=== PATIENT | male | born 1960 | race African-American/Black ===

== ENCOUNTER 2022-03-14 16:53 | Inpatient (IN) | payer OTHER ==
[2022-03-14 17:25] VITALS: BMI 32.1
[2022-03-14] MEDS ORDERED: guaiFENesin 200 MG/10 ML 10 ML UNIT-DOSE CUPS PO PRN (18:10)
[2022-03-14] MEDS ORDERED: MAGNESIUM HYDROX 2400MG/30ML ORAL SUSPENSION 30 ML CUP PO PRN (18:10)
[2022-03-14] MEDS ORDERED: IBUPROFEN 400 MG TABLET (FP) PO PRN (18:10)
[2022-03-14] MEDS ORDERED: LOPERAMIDE HCL 2 MG CAPSULE PO PRN (18:10)
[2022-03-14] MEDS ORDERED: MAG HYDROX/AL HYDROX/SIMETH 30 ML UNIT-DOSE CUP PO PRN (18:10)
[2022-03-14] MEDS ORDERED: POLYETHYLENE GLYCOL (HEALTHYLAX) 3350 17 GM PACKET PO PRN (18:10)
[2022-03-14] MEDS ORDERED: P-EPHED 60MG/TRIPROLIDI 2.5MG TABLET PO PRN (18:10)
[2022-03-14] MEDS ORDERED: BENZOCAINE/MENTHOL (CHLORASEPTIC ) LOZENGE MM PRN (18:10)
[2022-03-14] MEDS ORDERED: ACETAMINOPHEN 325 MG TABLET (FP) PO PRN (18:10)
[2022-03-14] MEDS ORDERED: TUBERCULIN PPD 5 TU/0.1ML VIAL ID ONE (19:24)
[2022-03-14] MEDS: THIAMINE HCL 100 MG TABLET (FP) PO SCH (21:22)
[2022-03-14] MEDS: MELATONIN 5 MG TABLETS PO PRN (21:22)
[2022-03-15] MEDS: FUROSEMIDE 20 MG TABLET (FP) PO SCH (09:46)
[2022-03-15] MEDS: ASPIRIN COATED 81 MG TABLET.EC PO SCH (09:46)
[2022-03-15] MEDS: amLODIPine BESYLATE 10 MG TABLET (FP) PO SCH (09:46)
[2022-03-15] MEDS: PRENATAL VITAMINS W/ FOLIC ACID TABLET (FP) PO SCH (09:46)
[2022-03-15 11:27] LABS: PH,URINE 8.5 (5.0-8.0); URINE APPEARANCE CLEAR; URINE BILIRUBIN NEGATIVE (NEGATIVE); URINE COLOR YELLOW; URINE GLUCOSE (UA) NEGATIVE (NEGATIVE); URINE KETONE NEGATIVE (NEGATIVE); URINE LEUK ESTERASE NEGATIVE (NEGATIVE); URINE NITRITE NEGATIVE (NEGATIVE); URINE PROTEIN NEGATIVE (NEGATIVE); URINE UROBILINOGEN 0.2 mg/dL (0.2-1.0)
[2022-03-15] MEDS ORDERED: QUEtiapine FUMARATE 100 MG TABLET (FP) PO SCH (22:00)
[2022-03-15] MEDS: THIAMINE HCL 100 MG TABLET (FP) PO SCH (22:01)
[2022-03-15] MEDS: MELATONIN 5 MG TABLETS PO PRN (22:01)
[2022-03-16] MEDS: amLODIPine BESYLATE 10 MG TABLET (FP) PO SCH (09:39)
[2022-03-16] MEDS: ASPIRIN COATED 81 MG TABLET.EC PO SCH (09:39)
[2022-03-16] MEDS: PRENATAL VITAMINS W/ FOLIC ACID TABLET (FP) PO SCH (09:39)
[2022-03-16] MEDS: FUROSEMIDE 20 MG TABLET (FP) PO SCH (09:39)
[2022-03-16] MEDS: PARoxetine HCL 20 MG TABLET PO SCH (11:00)
[2022-03-16] MEDS: MELATONIN 5 MG TABLETS PO PRN (21:25)
[2022-03-16] MEDS: THIAMINE HCL 100 MG TABLET (FP) PO SCH (21:25)
[2022-03-16] MEDS: QUEtiapine FUMARATE 200 MG TABLET PO SCH (21:26)
[2022-03-17] MEDS: PARoxetine HCL 20 MG TABLET PO SCH (09:20)
[2022-03-17] MEDS: ASPIRIN COATED 81 MG TABLET.EC PO SCH (09:20)
[2022-03-17] MEDS: amLODIPine BESYLATE 10 MG TABLET (FP) PO SCH (09:20)
[2022-03-17] MEDS: FUROSEMIDE 20 MG TABLET (FP) PO SCH (09:20)
[2022-03-17] MEDS: PRENATAL VITAMINS W/ FOLIC ACID TABLET (FP) PO SCH (09:20)
[2022-03-17] MEDS: CYCLOBENZAPRINE HCL 10 MG TABLET (FP) PO PRN (13:22)
[2022-03-17] MEDS: MELATONIN 5 MG TABLETS PO PRN (21:23)
[2022-03-17] MEDS: THIAMINE HCL 100 MG TABLET (FP) PO SCH (21:23)
[2022-03-17] MEDS: QUEtiapine FUMARATE 200 MG TABLET PO SCH (21:24)
[2022-03-18] MEDS: CYCLOBENZAPRINE HCL 10 MG TABLET (FP) PO PRN ×2 (10:12→21:24)
[2022-03-18] MEDS: amLODIPine BESYLATE 10 MG TABLET (FP) PO SCH (10:13)
[2022-03-18] MEDS: PRENATAL VITAMINS W/ FOLIC ACID TABLET (FP) PO SCH (10:13)
[2022-03-18] MEDS: ASPIRIN COATED 81 MG TABLET.EC PO SCH (10:13)
[2022-03-18] MEDS: FUROSEMIDE 20 MG TABLET (FP) PO SCH (10:13)
[2022-03-18] MEDS: PARoxetine HCL 20 MG TABLET PO SCH (10:13)
[2022-03-18 11:21] LABS: ALBUMIN 3.6 g/dl (3.4-5.0); BLOOD UREA NITROGEN 17.1 mg/dL (7-18); CALCIUM 8.4 mg/dL (8.5-10.1)
[2022-03-18 11:24] LABS: CREATININE 1.1 mg/dL (0.55-1.3)
[2022-03-18 11:26] LABS: BILIRUBIN,TOTAL 0.4 mg/dL (0.2-1); TOT PROT 6.9 g/dl (6.4-8.2)
[2022-03-18 11:28] LABS: HEMATOCRIT 37.5 % (35.4-49); HEMOGLOBIN 11.7 GM/dL (11.7-16.9); MCH 27.3 pg (25.7-33.7); MCHC 31.3 g/dl (32.0-35.9); MEAN CELL VOLUME 87.2 fl (80-96); MEAN PLT VOLUME 10.8 fl (7.5-11.1); PLATELET COUNT 139 10^3/uL (134-434); RDW 14.8 % (11.9-15.9)
[2022-03-18 11:29] LABS: WHITE BLOOD COUNT 2.4 K/mm3 (4.0-10.0)
[2022-03-18 11:53] LABS: ANISOCYTOSIS 1+; MACROCYTOSIS 0
[2022-03-18] MEDS: THIAMINE HCL 100 MG TABLET (FP) PO SCH (21:22)
[2022-03-18] MEDS: MELATONIN 5 MG TABLETS PO PRN (21:22)
[2022-03-18] MEDS: QUEtiapine FUMARATE 200 MG TABLET PO SCH (21:23)
[2022-03-19] MEDS: ASPIRIN COATED 81 MG TABLET.EC PO SCH (10:10)
[2022-03-19] MEDS: amLODIPine BESYLATE 10 MG TABLET (FP) PO SCH (10:10)
[2022-03-19] MEDS: PARoxetine HCL 20 MG TABLET PO SCH (10:10)
[2022-03-19] MEDS: FUROSEMIDE 20 MG TABLET (FP) PO SCH (10:10)
[2022-03-19] MEDS: PRENATAL VITAMINS W/ FOLIC ACID TABLET (FP) PO SCH (10:10)
[2022-03-19] MEDS: QUEtiapine FUMARATE 200 MG TABLET PO SCH (21:07)
[2022-03-19] MEDS: THIAMINE HCL 100 MG TABLET (FP) PO SCH (21:07)
[2022-03-19] MEDS: PRAZOSIN HCL 1 MG CAPSULE PO SCH (21:09)
[2022-03-19] MEDS ORDERED: PRAZOSIN HCL 1 MG CAPSULE PO SCH (22:00)
[2022-03-20] MEDS: amLODIPine BESYLATE 10 MG TABLET (FP) PO SCH (06:41)
[2022-03-20] MEDS: ASPIRIN COATED 81 MG TABLET.EC PO SCH (09:54)
[2022-03-20] MEDS: FUROSEMIDE 20 MG TABLET (FP) PO SCH (09:54)
[2022-03-20] MEDS: CYCLOBENZAPRINE HCL 10 MG TABLET (FP) PO PRN ×2 (09:55→21:15)
[2022-03-20] MEDS: PARoxetine HCL 20 MG TABLET PO SCH (09:55)
[2022-03-20] MEDS: PRENATAL VITAMINS W/ FOLIC ACID TABLET (FP) PO SCH (09:55)
[2022-03-20] MEDS: MELATONIN 5 MG TABLETS PO PRN (21:14)
[2022-03-20] MEDS: THIAMINE HCL 100 MG TABLET (FP) PO SCH (21:14)
[2022-03-20] MEDS: QUEtiapine FUMARATE 200 MG TABLET PO SCH (21:15)
[2022-03-20] MEDS: PRAZOSIN HCL 1 MG CAPSULE PO SCH (21:15)
[2022-03-21] MEDS: amLODIPine BESYLATE 10 MG TABLET (FP) PO SCH (06:19)
[2022-03-21] MEDS: ASPIRIN COATED 81 MG TABLET.EC PO SCH (09:48)
[2022-03-21] MEDS: FUROSEMIDE 20 MG TABLET (FP) PO SCH (09:49)
[2022-03-21] MEDS: PRENATAL VITAMINS W/ FOLIC ACID TABLET (FP) PO SCH (09:49)
[2022-03-21] MEDS: PARoxetine HCL 20 MG TABLET PO SCH (09:49)
[2022-03-21] MEDS: CYCLOBENZAPRINE HCL 10 MG TABLET (FP) PO PRN (09:49)
[2022-03-21] MEDS: MELATONIN 5 MG TABLETS PO PRN (21:16)
[2022-03-21] MEDS: THIAMINE HCL 100 MG TABLET (FP) PO SCH (21:16)
[2022-03-21] MEDS: QUEtiapine FUMARATE 200 MG TABLET PO SCH (21:17)
[2022-03-21] MEDS: PRAZOSIN HCL 1 MG CAPSULE PO SCH (21:17)
[2022-03-22] MEDS: amLODIPine BESYLATE 10 MG TABLET (FP) PO SCH (06:14)
[2022-03-22] MEDS: PARoxetine HCL 20 MG TABLET PO SCH (09:49)
[2022-03-22] MEDS: ASPIRIN 325 MG ENTERIC COATED TABLET (FP) PO SCH (09:49)
[2022-03-22] MEDS: PRENATAL VITAMINS W/ FOLIC ACID TABLET (FP) PO SCH (09:49)
[2022-03-22] MEDS: FUROSEMIDE 20 MG TABLET (FP) PO SCH (09:49)
[2022-03-22] MEDS: THIAMINE HCL 100 MG TABLET (FP) PO SCH (21:13)
[2022-03-22] MEDS: PRAZOSIN HCL 1 MG CAPSULE PO SCH (21:13)
[2022-03-22] MEDS: QUEtiapine FUMARATE 200 MG TABLET PO SCH (21:13)
[2022-03-22] MEDS: MELATONIN 5 MG TABLETS PO PRN (21:13)
[2022-03-22] MEDS: CYCLOBENZAPRINE HCL 10 MG TABLET (FP) PO PRN (21:14)
[2022-03-23] MEDS: amLODIPine BESYLATE 10 MG TABLET (FP) PO SCH (06:33)
[2022-03-23] MEDS: FUROSEMIDE 20 MG TABLET (FP) PO SCH (10:17)
[2022-03-23] MEDS: ASPIRIN 325 MG ENTERIC COATED TABLET (FP) PO SCH (10:17)
[2022-03-23] MEDS: PRENATAL VITAMINS W/ FOLIC ACID TABLET (FP) PO SCH (10:18)
[2022-03-23] MEDS: PARoxetine HCL 20 MG TABLET PO SCH (10:18)
[2022-03-23] MEDS: CYCLOBENZAPRINE HCL 10 MG TABLET (FP) PO PRN ×2 (12:36→21:25)
[2022-03-23] MEDS: QUEtiapine FUMARATE 200 MG TABLET PO SCH (21:22)
[2022-03-23] MEDS: THIAMINE HCL 100 MG TABLET (FP) PO SCH (21:23)
[2022-03-23] MEDS: PRAZOSIN HCL 1 MG CAPSULE PO SCH (21:23)
[2022-03-24] MEDS: amLODIPine BESYLATE 10 MG TABLET (FP) PO SCH (06:39)
[2022-03-24] MEDS: FUROSEMIDE 20 MG TABLET (FP) PO SCH (09:29)
[2022-03-24] MEDS: PRENATAL VITAMINS W/ FOLIC ACID TABLET (FP) PO SCH (09:29)
[2022-03-24] MEDS: ASPIRIN 325 MG ENTERIC COATED TABLET (FP) PO SCH (09:30)
[2022-03-24] MEDS: PARoxetine HCL 20 MG TABLET PO SCH (09:30)
[2022-03-24] MEDS: CYCLOBENZAPRINE HCL 10 MG TABLET (FP) PO PRN (21:25)
[2022-03-24] MEDS: QUEtiapine FUMARATE 200 MG TABLET PO SCH (21:25)
[2022-03-24] MEDS: PRAZOSIN HCL 1 MG CAPSULE PO SCH (21:25)
[2022-03-24] MEDS: THIAMINE HCL 100 MG TABLET (FP) PO SCH (21:26)
[2022-03-25] MEDS: amLODIPine BESYLATE 10 MG TABLET (FP) PO SCH (06:16)
[2022-03-25] MEDS: ASPIRIN 325 MG ENTERIC COATED TABLET (FP) PO SCH (10:13)
[2022-03-25] MEDS: PARoxetine HCL 20 MG TABLET PO SCH (10:13)
[2022-03-25] MEDS: CYCLOBENZAPRINE HCL 10 MG TABLET (FP) PO PRN ×2 (10:14→21:20)
[2022-03-25] MEDS: FUROSEMIDE 20 MG TABLET (FP) PO SCH (10:14)
[2022-03-25] MEDS: PRENATAL VITAMINS W/ FOLIC ACID TABLET (FP) PO SCH (10:14)
[2022-03-25] MEDS: MELATONIN 5 MG TABLETS PO PRN (21:20)
[2022-03-25] MEDS: QUEtiapine FUMARATE 200 MG TABLET PO SCH (21:20)
[2022-03-25] MEDS: PRAZOSIN HCL 1 MG CAPSULE PO SCH (21:20)
[2022-03-25] MEDS: THIAMINE HCL 100 MG TABLET (FP) PO SCH (21:20)
[2022-03-26] MEDS: amLODIPine BESYLATE 10 MG TABLET (FP) PO SCH (06:01)
[2022-03-26] MEDS: ASPIRIN 325 MG ENTERIC COATED TABLET (FP) PO SCH (09:45)
[2022-03-26] MEDS: FUROSEMIDE 20 MG TABLET (FP) PO SCH (09:46)
[2022-03-26] MEDS: PRENATAL VITAMINS W/ FOLIC ACID TABLET (FP) PO SCH (09:46)
[2022-03-26] MEDS: PARoxetine HCL 20 MG TABLET PO SCH (09:46)
[2022-03-26] MEDS: CYCLOBENZAPRINE HCL 10 MG TABLET (FP) PO PRN (09:51)
[2022-03-26] MEDS: THIAMINE HCL 100 MG TABLET (FP) PO SCH (21:15)
[2022-03-26] MEDS: PRAZOSIN HCL 1 MG CAPSULE PO SCH (21:15)
[2022-03-26] MEDS: MELATONIN 5 MG TABLETS PO PRN (21:15)
[2022-03-26] MEDS: QUEtiapine FUMARATE 200 MG TABLET PO SCH (21:15)
[2022-03-27] MEDS: amLODIPine BESYLATE 10 MG TABLET (FP) PO SCH (06:12)
[2022-03-27 06:41] VITALS: RESP 20; TEMP 97.5
[2022-03-27 09:03] VITALS: BP 156/73; PULSE 86
[2022-03-27] MEDS: PRENATAL VITAMINS W/ FOLIC ACID TABLET (FP) PO SCH (09:03)
[2022-03-27] MEDS: PARoxetine HCL 20 MG TABLET PO SCH (09:03)
[2022-03-27] MEDS: ASPIRIN 325 MG ENTERIC COATED TABLET (FP) PO SCH (09:03)
[2022-03-27] MEDS: FUROSEMIDE 20 MG TABLET (FP) PO SCH (09:04)
== END 2022-03-27 09:17 | disposition home or self-care (01) | DRG 772 ==
LOC: YASAS 16:53 → Y3E 18:21
PROVIDERS: ADMIT Allergy & Immunology; ATTEND Psychiatry & Neurology Pain Medicine
PROC: HZ42ZZZ Group Counseling for Substance Abuse Treatment, Cognitive-Behavioral (ICD-10-PCS; principal; 2022-03-14)
DX: F11.20 Opioid dependence, uncomplicated (principal); F14.20 Cocaine dependence, uncomplicated; F17.210 Nicotine dependence, cigarettes, uncomplicated; F43.10 Post-traumatic stress disorder, unspecified; I11.0 Hypertensive heart disease with heart failure; I50.9 Heart failure, unspecified; G47.00 Insomnia, unspecified; M54.50 Low back pain, unspecified; M17.0 Bilateral primary osteoarthritis of knee; M19.072 Primary osteoarthritis, left ankle and foot; E66.9 Obesity, unspecified; Z68.32 Body mass index [BMI] 32.0-32.9, adult; Z86.19 Personal history of other infectious and parasitic diseases
CPT/HCPCS: 36415; 80053; 81003; 82962; 85025; 86593; 86780; 86803; 93005; 93010; C9803-CS; U0003; U0005